=== PATIENT | female | born 1990 | race Two or more races ===

== ENCOUNTER 2024-03-04 20:52 | Emergency (ER) | payer MEDICAID, OTHER ==
[~2024-03-04] VITALS: Ht 154.9 cm; Wt 109.3 kg
[2024-03-04 21:01] VITALS: BP 146/77; PULSE 96; RESP 16; TEMP 97.9; O2SAT 99
[2024-03-04] MEDS: GLUCAGON EMERG KIT 1mg/1ml IM ONE (23:56)
[2024-03-05] MEDS ORDERED: PRED20TA2 PO (00:33)
[2024-03-05] MEDS: methylPREDNISolone SOD SUCC 125 MG/2 ML VL IM ONE (00:50)
== END 2024-03-05 01:06 | disposition home or self-care (01) ==
LOC: ER 20:52
DX: Z03.822 Encounter for observation for suspected aspirated (inhaled) foreign body ruled out (principal)
CPT/HCPCS: 70360; 71045; 96372; 99284; J1610; J2919